=== PATIENT | male | born 1985 ===

== ENCOUNTER 2017-10-13 16:37 | Emergency (ER) | payer OTHER ==
[2017-10-13 16:56] VITALS: BP 135/88
--- NOTE | 2017-10-13 17:49 | RAD ---
Indication: Left ankle injury. 3 views of left ankle demonstrate soft tissue swelling laterally. Ankle mortise is intact. No fracture is noted. IMPRESSION: Soft tissue swelling over the lateral malleolus without evidence of fracture.
--- NOTE | 2017-10-13 18:07 | UC ---
Guerita Maher Elizabeth, scribed for Susu Martinez MD on 10/13/17 at 1731 . Lower Extremity/Ankle HPI - HPI Summary HPI Summary: This patient is a 32 year old M presenting to [facility] with a chief complaint of left ankle pain since 3 weeks ago. The patient reports that the pain began when he was playing volleyball and fell and rolled his left ankle. The patient has been resting, elevating, icing and bandaging the ankle with an elmo bandage. The patient reports that a few days after the injury there was some discoloration to his left ankle but he assumed it was from the bandage. The patient rates the pain 0/10 in severity at rest. Pt with increased pain with movement and walking. Symptoms alleviated by ibuprofen - none x 2-3 days. Patient reports loss of strength in his left ankle, walking with a limp due to tightness in calf and lateral ankle, and decreased ROM of ankle. Patient denies any numbness or tingling in toes. The patient has been taking ibuprofen but reports that he has not taken any in a few days. The patient reports that he has injured his ankles when he was a younger kid. 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 Pt's medications reviewed this visit - History of Current Complaint Chief Complaint: UCLowerExtremity Stated Complaint: LEFT ANKLE INJURY Time Seen by Provider: 10/13/17 16:42 Hx Obtained From: Patient Onset/Duration: Sudden Onset, Lasting Weeks - 3 weeks, Still Present Severity Initially: Mild Severity Currently: None Pain Intensity: 0 Pain Scale Used: 0-10 Numeric Aggravating Factor(s): Other - movement and positioning Alleviating Factor(s): Rest, Elevation, Ice, OTC Meds - ibuprofe Able to Bear Weight: Yes - still walk with limp - Allergies/Home Medications Allergies/Adverse Reactions: Allergies Allergy/AdvReac Type Severity Reaction Status Date / Time No Known Allergies Allergy Verified 10/13/17 16:56 Home Medications: Home Medications NK [No Home Medications Reported] 10/13/17 [History Confirmed 10/13/17] PMH/Surg Hx/FS Hx/Imm Hx - Additional Past Medical History Additional PMH: twisted ankles as a kid Previously Healthy: Yes - Surgical History Surgical History: None - Family History Known Family History: Positive: None - patient denies relevant FHx - Social History Occupation: Employed Full-time - [employer] Alcohol Use: Occasionally Substance Use Type: None Smoking Status (MU): Never Smoked Tobacco Review of Systems Constitutional: Negative - negative fever ENT: Negative - negative epistaxis Gastrointestinal: Negative - negative vomiting Musculoskeletal: Arthralgia - left ankle pain, Decreased ROM - in left ankle, Edema - left ankle swelling, Other: - decreased strength in left ankle and left calf All Other Systems Reviewed And Are Negative: Yes Physical Exam - Summary Physical Exam Summary: Vital Signs Reviewed: Yes A+Ox3, no distress Eyes: Conjunctiva Clear ENT: Hearing grossly normal neck: supple Respiratory: Positive: No respiratory distress, No accessory muscle use Cardiovascular: skin color reflect adequate perfusion 2+ DP, PT CBT < 2 wec Musculoskeletal Exam: + flex/ext knee, + great toes Pt with tenderness inferior , posterior lateral malleolus no crepitus Pain increases with infeversion and full flexion Neurological: Positive: Alert, ambulatory without difficulty + gross sensation throughout foot Psychological: Positive: Normal Response To Family Skin: Positive: no rash, no ecchymosis mild edema lateral malleolus Triage Information Reviewed: Yes Vital Signs: Initial Vital Signs Temp 98.0 F 10/13/17 16:50 Pulse 78 10/13/17 16:50 Resp 20 10/13/17 16:50 BP 135/88 10/13/17 16:50 Pulse Ox 98 10/13/17 16:50 Diagnostics - Radiology Left Ankle XR Xray Interpretation: No Acute Changes - IMPRESSION: Soft tissue swelling over the lateral malleolus without evidence of fracture. Dr. Martinez has reviewed this report. Radiology Interpretation Completed By: Radiologist Lower Extremity Course/Dx - Course Course Of Treatment: Pt with persistent discomfort with walking and rom of Left ankle s/p twisting injury > 3 weeks. Pt with tenderness lateral malleolus. No crepitus. imaging neg. Will place in elmo, air splint. crutches. ice. elevate. sports medicine follow-up - Differential Dx/Diagnosis Provider Diagnoses: left ankle sprain Discharge - Sign-Out/Discharge Documenting (check all that apply): Discharge/Admit/Transfer - Discharge Plan Condition: Stable Disposition: HOME Discharge Disposition Comment: discharge home Patient Education Materials: Ankle Sprain (ED), Crutch Instructions (ED) Referrals: Sports Medicine Athletic [facility] [Provider Group] - 1 Week [facility] PHYSICIAN REFERRAL [Outside] Additional Instructions: -wear elmo wrap and splint for comfort and support -use crutches until you can walk normally without a limp or are seen by the investigation specialist -Elevate your leg - this will help with swelling and pain -Okay to alternate ibuprofen (Advil, Motrin)600mg and Tylenol every 3 hours for pain. Take with food. Do NOT take for more than 4-5 days -Contact the sports medicine group to schedule a follow-up appointment. Contact your doctor or return with questions or concerns - Billing Disposition and Condition Condition: STABLE Disposition: Home The documentation as recorded by the Guerita davis Elizabeth accurately reflects the service I personally performed and the decisions made by , Susu Martinez MD.
== END 2017-10-13 18:25 | disposition home or self-care (01) ==
LOC: UCEAST 16:37
DX: S93.402A Sprain of unspecified ligament of left ankle, initial encounter (principal); W01.0XXA Fall on same level from slipping, tripping and stumbling without subsequent striking against object, initial encounter; Y93.9 Activity, unspecified; Y99.9 Unspecified external cause status
CPT/HCPCS: 99203; G0463